=== PATIENT | male | born 1975 | race Caucasian/White ===

== ENCOUNTER 2016-10-14 14:43 | Emergency (ER) | payer OTHER, BC ==
[~2016-10-14] VITALS: Ht 177.8 cm; Wt 121.0 kg
[~2016-10-14 14:43] MED LIST: BENI5TAB4; NORV2.5T11
[2016-10-14 14:54] VITALS: BP 150/97; PULSE 78; RESP 14; TEMP 98.2; O2SAT 97
[2016-10-14] MEDS ORDERED: BENI5TAB4 PO (16:17)
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
[2016-10-14] MEDS ORDERED: CYCL5TAB PO (16:39)
[2016-10-14] MEDS ORDERED: IBUP800T23 PO (16:39)
== END 2016-10-14 16:53 | disposition home or self-care (01) ==
LOC: PHEFT 14:43
DX: T14.8 Other injury of unspecified body region (principal); S40.212A Abrasion of left shoulder, initial encounter; I10 Essential (primary) hypertension; V43.52XA Car driver injured in collision with other type car in traffic accident, initial encounter; Y93.89 Activity, other specified; Y92.410 Unspecified street and highway as the place of occurrence of the external cause
CPT/HCPCS: 99283